=== PATIENT | female | born 1985 | race Caucasian/White ===

== ENCOUNTER 2019-02-05 20:52 | Emergency (ER) | payer OTHER ==
[~2019-02-05] VITALS: Ht 157.5 cm; Wt 83.2 kg
[~2019-02-05 20:52] MED LIST: ALBUTEROL S2.5 MG/.5 IN; ALREX0.2 % OU; AMBIEN5 MG OR; AMOXICILLIN500 MG PO; AMOXIL400 MG/51 OR; ASMANEX 120220 MCG INH; BACITRACIN TOP; BENADRYL 50MG C50 MG OR; BENADRYL 50MG C50 MG PO; CEPHALEXIN500 MG PO; DOXEPIN HCL50 MG PO; DYMISTA1 SPR; FIORICE1 PO; FLEXERIL OR; GENTAMICIN SULF5 ML OP; IMODIUM2 MG PO; KEFLEX500 MG PO; LORTAB 5 OR; MEDDOSEPAK OR; ONDANSETRON HCL4 MG PO; PATANOL0.1 % OP; PEPCID20 MG PO; PHENERGAN25 MG/TAB PO; PREDNISONE20 MG PO; RESTORIL15 MG PO; SINGULAIR 10 MG10 MG PO; TAGAMET300 MG OR; ULTRAM50 M1 PO; VALTREX500 MG OR; VISTARIL25 MG PO; XYZAL5 MG PO; ZOFRAN ODT4 MG PO
[2019-02-05] MEDS ORDERED: FLONASE AL50 MCG/ACT (21:22)
[2019-02-05] MEDS ORDERED: AMBIEN5 MG PO (21:23)
[2019-02-05] MEDS ORDERED: PROTONIX40 M2 PO (21:23)
[2019-02-05] MEDS ORDERED: HYDROMET1 M1 PO (21:24)
[2019-02-05 21:25] LABS: HEMATOCRIT 36.7 % (37.0-47.0); IMMATURE GRANULOCYTES 0.5 % (0.0-5.0); MEAN CELL VOLUME 89.5 fL CALC (80.0-100.0); MEAN CORPUSCULAR HGB 29.3 pG CALC (26.0-32.0); MEAN CORPUSCULAR HGB CONC 32.7 g/L CALC (32.0-36.0); NEUT# 9.94 thou/uL (2.00-7.15); RED BLOOD COUNT 4.1 mill/uL (4.20-5.60); RED CELL DISTRI WIDTH 13.1 % (11.5-15.5)
[2019-02-05] MEDS ORDERED: [UNRECOGNIZED DRUG - OTHER] (21:25)
[2019-02-05 21:42] LABS: ALBUMIN 3.8 g/dL (3.2-5.0); ALKALINE PHOSPHATASE 83 u/l (38-126); ANION GAP 10 (6-22 (CALC)); BILIRUBIN, TOTAL 0.3 mg/dL (0.0-1.4); BUN 8 mg/dL (7-17); BUN/CREATININE RATIO 13 (12-20 (CALC)); CARBON DIOXIDE 25 mmol/l (22-30); CHLORIDE 107 mmol/l (95-108); CREATININE 0.6 mg/dL (0.5-1.0); GFR > 60 ML/MIN (>=60 (CALC)); GFR FOR AFR.AMER. > 60 ML/MIN (>=60 (CALC)); SGOT/AST 27 u/l (14-36); SODIUM 138 mmol/l (137-146); TOTAL PROTEIN 6.9 g/dL (6.3-8.2)
[2019-02-05] MEDS ORDERED: REGLAN10 MG PO (22:39)
[2019-02-05 22:50] VITALS: BP 169/99
== END 2019-02-05 22:50 | disposition home or self-care (01) | DRG 392 ==
LOC: ED 20:52
PROVIDERS: Family Medicine
DX: R11.2 Nausea with vomiting, unspecified (principal)

== ENCOUNTER 2019-06-04 17:46 | Emergency (ER) | payer OTHER ==
[~2019-06-04] VITALS: Ht 157.5 cm; Wt 78.0 kg
[~2019-06-04 17:46] MED LIST changes: +AMBIEN5 MG PO; +FLONASE AL50 MCG/ACT; +HYDROMET1 M1 PO; +PROTONIX40 M2 PO; +REGLAN10 MG PO; +[UNRECOGNIZED DRUG - OTHER]
[2019-06-04 19:10] LABS: HEMATOCRIT 42.6 % (37.0-47.0); HEMOGLOBIN 13.6 g/dl (12.0-16.0); IMMATURE GRANULOCYTES 0.5 % (0.0-5.0); MEAN CELL VOLUME 89.5 fL CALC (80.0-100.0); MEAN CORPUSCULAR HGB 28.6 pG CALC (26.0-32.0); MEAN CORPUSCULAR HGB CONC 31.9 g/L CALC (32.0-36.0); NEUT# 11.69 thou/uL (2.00-7.15); RED BLOOD COUNT 4.76 mill/uL (4.20-5.60); RED CELL DISTRI WIDTH 13.3 % (11.5-15.5)
[2019-06-04 19:39] LABS: ALBUMIN 4.4 g/dL (3.2-5.0); ALKALINE PHOSPHATASE 99 u/l (38-126); AMYLASE 46 u/l (30-110); ANION GAP 13 (6-22 (CALC)); BILIRUBIN, TOTAL 0.4 mg/dL (0.0-1.4); BUN 8 mg/dL (7-17); BUN/CREATININE RATIO 11 (12-20 (CALC)); CARBON DIOXIDE 29 mmol/l (22-30); CHLORIDE 102 mmol/l (95-108); CREATININE 0.7 mg/dL (0.5-1.0); GFR > 60 ML/MIN (>=60 (CALC)); GFR FOR AFR.AMER. > 60 ML/MIN (>=60 (CALC)); LIPASE 35 u/l (23-300); POTASSIUM 4.7 mmol/l (3.5-5.1); SGOT/AST 25 u/l (14-36); SODIUM 139 mmol/l (137-146); TOTAL PROTEIN 7.7 g/dL (6.3-8.2)
[2019-06-04 21:05] LABS: URINE BILIRUBIN - DIPSTICK NEGATIVE (NEGATIVE); URINE BLOOD DIPSTICK NEGATIVE (NEGATIVE); URINE COLOR YELLOW; URINE GLUCOSE - DIPSTICK NEGATIVE (NEGATIVE); URINE KETONE NEGATIVE (NEGATIVE); URINE LEUK ESTERASE NEGATIVE (NEGATIVE); URINE NITRITE - DIPSTICK NEGATIVE (Negative); URINE PH 8.5 (4.5-8.0); URINE PROTEIN - DIPSTICK NEGATIVE (NEG-TRACE); URINE SPECIFIC GRAVITY 1.015; URINE UROBILINOGEN - DIPSTICK 0.2 E.U./dL (0.2)
[2019-06-04 22:47] VITALS: BP 128/88
== END 2019-06-04 22:47 | disposition home or self-care (01) | DRG 392 ==
LOC: ED 17:46
PROVIDERS: Emergency Medicine
DX: R11.10 Vomiting, unspecified (principal); R51 Headache
CPT/HCPCS: S0164

== ENCOUNTER 2019-08-18 | Emergency (ER) | payer OTHER ==
[2019-08-18 18:44] LABS: HEMATOCRIT 41.5 % (37.0-47.0); HEMOGLOBIN 13.3 g/dl (12.0-16.0); IMMATURE GRANULOCYTES 0.5 % (0.0-5.0); MEAN CELL VOLUME 88.9 fL CALC (80.0-100.0); MEAN CORPUSCULAR HGB 28.5 pG CALC (26.0-32.0); NEUT# 9.51 thou/uL (2.00-7.15); RED BLOOD COUNT 4.67 mill/uL (4.20-5.60); RED CELL DISTRI WIDTH 13.2 % (11.5-15.5)
[2019-08-18 19:00] LABS: ALKALINE PHOSPHATASE 96 u/l (38-126); BILIRUBIN, TOTAL 0.4 mg/dL (0.0-1.4); BUN 7 mg/dL (7-17); BUN/CREATININE RATIO 12 (12-20 (CALC)); CHLORIDE 105 mmol/l (95-108); CREATININE 0.6 mg/dL (0.5-1.0); GFR > 60 ML/MIN (>=60 (CALC)); GFR FOR AFR.AMER. > 60 ML/MIN (>=60 (CALC)); LIPASE 36 u/l (23-300); POTASSIUM 4.3 mmol/l (3.5-5.1); SGOT/AST 21 u/l (14-36); SODIUM 136 mmol/l (137-146); TOTAL PROTEIN 7.3 g/dL (6.3-8.2)
[2019-08-18 19:01] LABS: ANION GAP 13 (6-22 (CALC)); CARBON DIOXIDE 22 mmol/l (22-30)
== END 2019-08-18 20:55 | disposition home or self-care (01) | DRG 392 ==
PROVIDERS: Family Medicine
DX: R11.2 Nausea with vomiting, unspecified (principal)

== ENCOUNTER 2019-09-17 | Emergency (ER) | payer OTHER ==
[2019-09-17 18:15] LABS: HEMATOCRIT 39.2 % (37.0-47.0); HEMOGLOBIN 12.6 g/dl (12.0-16.0); IMMATURE GRANULOCYTES 0.3 % (0.0-5.0); MEAN CELL VOLUME 86.9 fL CALC (80.0-100.0); MEAN CORPUSCULAR HGB 27.9 pG CALC (26.0-32.0); MEAN CORPUSCULAR HGB CONC 32.1 g/L CALC (32.0-36.0); NEUT# 8.41 thou/uL (2.00-7.15); RED BLOOD COUNT 4.51 mill/uL (4.20-5.60); RED CELL DISTRI WIDTH 13.2 % (11.5-15.5)
[2019-09-17 18:30] LABS: ALKALINE PHOSPHATASE 93 u/l (38-126); ANION GAP 12 (6-22 (CALC)); BILIRUBIN, TOTAL 0.3 mg/dL (0.0-1.4); BUN 9 mg/dL (7-17); BUN/CREATININE RATIO 16 (12-20 (CALC)); CARBON DIOXIDE 24 mmol/l (22-30); CHLORIDE 103 mmol/l (95-108); CREATININE 0.6 mg/dL (0.5-1.0); GFR > 60 ML/MIN (>=60 (CALC)); GFR FOR AFR.AMER. > 60 ML/MIN (>=60 (CALC)); LIPASE 34 u/l (23-300); POTASSIUM 4.2 mmol/l (3.5-5.1); SGOT/AST 19 u/l (14-36); SODIUM 136 mmol/l (137-146); TOTAL PROTEIN 7.1 g/dL (6.3-8.2)
[2019-09-17 18:37] LABS: AMYLASE < 30 u/l (30-110)
[2019-09-17 18:42] LABS: MYOGLOBIN 23 ng/mL (0 - 62)
[2019-09-17] MEDS ORDERED: PHENERGAN25 MG RE (18:51)
== END 2019-09-17 19:50 | disposition home or self-care (01) | DRG 392 ==
PROVIDERS: Emergency Medicine
DX: R11.10 Vomiting, unspecified (principal); K21.9 Gastro-esophageal reflux disease without esophagitis
CPT/HCPCS: S0164

== ENCOUNTER 2020-09-20 17:05 | Emergency (ER) | payer OTHER ==
[~2020-09-20] VITALS: Ht 157.5 cm; Wt 83.2 kg
[~2020-09-20 17:05] MED LIST changes: +PHENERGAN25 MG RE
[2020-09-20 18:18] LABS: HEMATOCRIT 41.5 % (37.0-47.0); HEMOGLOBIN 13.1 g/dl (12.0-16.0); IMMATURE GRANULOCYTES 0.6 % (0.0-5.0); MEAN CELL VOLUME 87.9 fL CALC (80.0-100.0); MEAN CORPUSCULAR HGB 27.8 pG CALC (26.0-32.0); MEAN CORPUSCULAR HGB CONC 31.6 g/dL CAL (32.0-36.0); NEUT# 13.68 thou/uL (2.00-7.15); RED BLOOD COUNT 4.72 mill/uL (4.20-5.60); RED CELL DISTRI WIDTH 13.2 % (11.5-15.5)
[2020-09-20 18:39] LABS: ALBUMIN 4.1 g/dL (3.2-5.0); ALKALINE PHOSPHATASE 101 u/l (38-126); ANION GAP 14 (6-22 (CALC)); BILIRUBIN, TOTAL 0.4 mg/dL (0.0-1.4); BUN 8 mg/dL (7-17); BUN/CREATININE RATIO 13 (12-20 (CALC)); CARBON DIOXIDE 22 mmol/l (22-30); CHLORIDE 101 mmol/l (95-108); CREATININE 0.7 mg/dL (0.5-1.0); GFR > 60 ML/MIN (>=60 (CALC)); GFR FOR AFR.AMER. > 60 ML/MIN (>=60 (CALC)); LIPASE 40 u/l (23-300); SGOT/AST 26 u/l (14-36); SODIUM 133 mmol/l (137-146); TOTAL PROTEIN 7.1 g/dL (6.3-8.2)
[2020-09-21 00:51] VITALS: BP 146/77
== END 2020-09-21 01:13 | disposition home or self-care (01) | DRG 392 ==
LOC: ED 17:05
PROVIDERS: Family Medicine
DX: R11.2 Nausea with vomiting, unspecified (principal); I10 Essential (primary) hypertension; K29.70 Gastritis, unspecified, without bleeding; K21.9 Gastro-esophageal reflux disease without esophagitis; E88.01 Alpha-1-antitrypsin deficiency
CPT/HCPCS: Q9967

== ENCOUNTER 2024-10-18 10:48 | Emergency (ER) | payer BC ==
[2024-10-18] VITALS (16 sets, daily range): BP systolic 137–165; BP diastolic 72–127
[~2024-10-18] VITALS: Ht 160 cm; Wt 84.1 kg
[2024-10-18] MEDS ORDERED: HYDROCHLOROT25 MG PO (11:11)
[2024-10-18] MEDS ORDERED: VERAPAMIL HCL240 MG PO (11:11)
[2024-10-18] MEDS ORDERED: PROLASTIN IV (11:11)
[2024-10-18] MEDS ORDERED: BUDESONID2 IN (11:12)
[2024-10-18] MEDS ORDERED: IPRATROPIU0.5 MG/3 M IN (11:13)
[2024-10-18] MEDS ORDERED: VENTOLIN HFA108 MCG IN (11:14)
[2024-10-18] MEDS ORDERED: TRIGLIDE160 MG PO (11:15)
[2024-10-18 13:19] LABS: BASO% 0.4 % (0-3); EOS% 0.4 % (0-8); IMMATURE GRANULOCYTES 0.6 % (0.0-5.0); LYMPH% 20.9 % (15-41); MEAN CELL VOLUME 82.8 fL CALC (80.0-100.0); MEAN CORPUSCULAR HGB 25.6 pG CALC (26.0-32.0); NEUT# 6.34 thou/uL (2.00-7.15); NEUT% 70.7 % (42-76); RED BLOOD COUNT 4.29 mill/uL (4.20-5.60); RED CELL DISTRI WIDTH 15.6 % (11.5-15.5)
[2024-10-18 13:20] LABS: HEMATOCRIT 35.5 % (37.0-47.0)
[2024-10-18 13:30] LABS: ALKALINE PHOSPHATASE 97 u/l (38-126); ANION GAP 13 (6-22 (CALC)); BILIRUBIN, TOTAL 0.4 mg/dL (0.02-1.3); BUN 13 mg/dL (7-17); BUN/CREATININE RATIO 22 (12-20 (CALC)); CARBON DIOXIDE 22 mmol/l (22-30); CHLORIDE 105 mmol/l (95-108); CREATININE 0.6 mg/dL (0.5-1.0); ESTIMATED GFR 116 ML/MIN (>=90 (CALC)); POTASSIUM 4.4 mmol/l (3.5-5.1); SGOT/AST 31 u/l (14-36); SODIUM 135 mmol/l (137-146); TOTAL PROTEIN 7.2 g/dL (6.3-8.2)
[2024-10-18] MEDS ORDERED: TORADOL PO ×2 (14:05→16:48)
[2024-10-20] MEDS ORDERED: VALTREX1 GM PO (14:23)
[2024-10-24] MEDS ORDERED: METHOCARBAMOL500 MG PO (16:45)
[2024-10-24] MEDS ORDERED: TORADOL PO (16:45)
== END 2024-10-18 14:41 | disposition home or self-care (01) | DRG 552 ==
LOC: ED 10:48
PROVIDERS: Nurse Practitioner
DX: M54.6 Pain in thoracic spine (principal); J45.909 Unspecified asthma, uncomplicated; K21.9 Gastro-esophageal reflux disease without esophagitis; E78.5 Hyperlipidemia, unspecified